=== PATIENT | female | born 1950 | race Caucasian/White ===

== ENCOUNTER 2023-02-05 11:15 | Outpatient (CLI) | payer MEDICARE ==
[~2023-02-05 11:15] MED LIST: Magnevist 469MG/ML 20 ML VIAL ONE
== END 2023-02-05 11:16 | disposition home or self-care (01) ==
LOC: MRI 11:15
PROVIDERS: ATTEND Psychiatry & Neurology Neurology
DX: R51.9 Headache, unspecified (principal); R41.82 Altered mental status, unspecified; R90.82 White matter disease, unspecified
CPT/HCPCS: 70553; 95816; 95957; A9579